=== PATIENT | female | born 1955 | race Caucasian/White ===

== ENCOUNTER 2016-12-26 20:44 | Inpatient (IN) | payer MEDICAID, OTHER ==
[~2016-12-26] VITALS: Ht 154.9 cm; Wt 98.2 kg
[2016-12-26] MEDS: ASPIRIN 81 MG ENTERIC TAB PO SCH (09:00)
[2016-12-26] MEDS ORDERED: METOPROLOL TART 25 MG TABLET PO SCH (21:00)
[2016-12-26] MEDS ORDERED: ATORVASTATIN 20 MG TAB PO SCH (21:00)
[2016-12-26 23:00] VITALS: BP 107/62
[2016-12-26] MEDS ORDERED: LR 1,000 ML IV SCH (23:30)
[2016-12-26] MEDS ORDERED: ONDANSETRON 4MG/2ML VIAL (J2405) IV PRN (23:30)
[2016-12-26] MEDS ORDERED: ACETAMINOPHEN TAB 650MG DOSE (2X325MG) PO PRN (23:30)
[2016-12-26 23:56] LABS: BASO # 0.1 K/mm3 (0.0-0.2); BASO % 0.8 % (0.0-1.0); EOS # 0.1 K/mm3 (0.0-0.50); EOS % 0.9 % (0.0-3.0); LARGE UNSTAINED CELL # 0.2 K/mm3 (0.0-0.4); LARGE UNSTAINED CELL % 1.8 % (0.0-4.0); LYMPH # 0.9 K/mm3 (1.5-4.5); LYMPH % 7.4 % (24.0-44.0); MEAN CORPUSCULAR HEMOGLOBIN 29.6 pg (27.0-33.0); MEAN CORPUSCULAR HGB CONC 33.1 g/dl (32.0-36.5); MEAN CORPUSCULAR VOLUME 89.5 fl (80.0-96.0); MONO # 0.7 K/mm3 (0.0-0.8); MONO % 6.8 % (0.0-5.0); NEUTROPHILS % 82.4 % (36.0-66.0); PLATELET COUNT, AUTOMATED 149 k/mm3 (150-450); RED CELL DISTRIBUTION WIDTH 13.4 % (11.5-14.5); WHITE BLOOD COUNT 9.7 K/mm3 (4.0-10.0)
[2016-12-27] VITALS: BP 107/69
--- NOTE | 2016-12-27 00:05 | HPE ---
DATE OF ADMISSION: 12/26/2016 PRIMARY CARE PROVIDER: CHRIS Sutton CHIEF COMPLAINT: Nausea, vomiting, shortness of breath and palpitations. HISTORY OF THE PRESENT ILLNESS: This is a 61-year-old female patient with underlying medical history of hypertension, dyslipidemia, conjunctivitis with questionable history of tachycardia many years ago. Early this morning at 5:00 a.m., the patient started having nausea and vomiting, nonbloody, nonbilious, very mucousy, clear liquid, for five times since 5:00 a.m. this morning, with also shortness of breath and diarrhea times two, nonbloody, nonbilious, watery. Subsequently, after the patient started vomiting, the patient was not able to take her beta blockers and developed palpitations with dryness sensation in her chest, discomfort ranging from about 4 out of 10 with no relieving or exacerbating factor. The patient subsequently presented to [facility], was found to have a supraventricular tachycardia (SVT) of 200, given adenosine, and the patient intermittently went into sinus tachycardia of 115, subsequently went back to SVT at 200. Subsequently, the patient was administered Cardizem bolus and placed on Cardizem drip and the patient reverted back to sinus with vital signs of 117/80 with a heart rate of 90 and subsequently request for transfer for telemetry monitoring has been made to transfer the patient to [facility]. Initially the patient was brought to the intensive care unit (ICU) given possibility of hemodynamic instability. In the ICU, patient was evaluated, patient had vital signs of heart rate of 80 and sinus rhythm with a blood pressure of 104/75, pulse oximetry of 96% on room air and the patient was comfortable. The patient currently denies any chest pain, pressure or discomfort. Denies any fevers or chills. Last episode of vomiting was many hours ago. The patient feels comfortable. Reported hungry and thirsty. Believes that she can tolerate oral. Subsequently, Cardizem drip was discontinued, oral metoprolol has been ordered for the patient. The patient denies any sick contact, recent travel , abnormal food or diet. Denies any fevers or chills. ALLERGIES: No known drug allergies reported. PAST MEDICAL HISTORY: Conjunctivitis. Pneumothorax a year ago during patient's acute cholecystectomy. Hypertension. Dyslipidemia. PAST SURGICAL HISTORY: Cholecystectomy. SOCIAL HISTORY: The patient lives with a partner. Denies any alcohol drinking, smoking or illicit drug use. FAMILY HISTORY: Noncontributory. HOME MEDICATION: - atorvastatin 20 mg by mouth daily - lisinopril 20 mg by mouth daily - metoprolol 25 mg by mouth daily - omeprazole 20 mg by mouth daily REVIEW OF SYSTEMS: 11-point review of systems negative except for those mentioned in the history of the present illness. PHYSICAL EXAMINATION: VITAL SIGNS: Blood pressure 104/75, pulse 80, respirations 19, pulse oximetry 93 % on room air. GENERAL: Patient obese, alert and oriented times three, in no acute distress. HEENT: Normocephalic, atraumatic. PULMONARY: Bilaterally clear to auscultation. CARDIAC: Regular rate and rhythm. Normal S1, S2. ABDOMEN: Obese, soft, nontender. Positive bowel sounds. EXTREMITIES: No edema bilateral lower extremities. EKG shows SVT at 200 and also sinus tachycardia at 118. Nonspecific ST segment changes. LABORATORY: Still pending. From [facility], the patient had a WBC of 10.8, hemoglobin and hematocrit 16.4 over 49.4, platelets 169. Chemistry: Sodium 141, potassium 4.3, chloride 104, bicarbonate 27, BUN of 15, creatinine 1.1 ASSESSMENT AND PLAN: This is a 61-year-old female patient with underlying medical history of hypertension, dyslipidemia, admitted for nausea, vomiting, diarrhea and supraventricular tachycardia. Problems: 1. Supraventricular tachycardia. Will consult cardiology in the morning. Followup cardiac enzymes. Patient switched over from Cardizem to oral metoprolol. Dosage has been increased to 25 mg by mouth twice a day. Followup cardiac enzymes. Telemetry monitoring. Followup vital signs. IV fluids for hydration. Followup thyroid panel, CBCs, followup electrolytes, supplement as needed. 2. Nausea, vomiting, diarrhea. IV fluids for hydration. Followup electrolytes, supplement as needed, Zofran, GI panel. Followup labs. 3. Hypertension. Holding lisinopril given patient with borderline normal blood pressure and metoprolol dose has been increased. Will followup blood pressure, adjust medication as needed. 4. Dyslipidemia. Continue statin. 5. Obesity. Followup A1c. Continue to monitor. 6. Deep vein thrombosis (DVT) prophylaxis. Heparin subcu. DISPOSITION PLANNING: Pending further workup and cardiology consultation in the morning and followup blood tests overnight. MELANIE
[2016-12-27 00:24] LABS: ALBUMIN 3.6 GM/DL (3.2-5.2); ALBUMIN/GLOBULIN RATIO 0.95 (1.00-1.93); ALKALINE PHOSPHATASE 90 U/L (45-117); ALT/SGPT 51 U/L (12-78); ANION GAP 9 MEQ/L (8-16); AST/SGOT 35 U/L (15-37); BLOOD UREA NITROGEN 17 MG/DL (7-18); CALCIUM LEVEL 8.5 MG/DL (8.8-10.2); CARBON DIOXIDE LEVEL 27 MEQ/L (21-32); CHLORIDE LEVEL 105 MEQ/L (98-107); CREATININE FOR GFR 0.97 MG/DL (0.55-1.02); GLOMERULAR FILTRATION RATE > 60.0 (>45); GLUCOSE, FASTING 107 MG/DL (80-110); MAGNESIUM LEVEL 1.6 MG/DL (1.8-2.4); POTASSIUM SERUM 3.8 MEQ/L (3.5-5.1); SODIUM LEVEL 141 MEQ/L (136-145); T UPTAKE 30 % (30-39); TOTAL PROTEIN 7.4 GM/DL (6.4-8.2)
[2016-12-27] MEDS: HEPARIN SOD (PORCINE) 5000 UNITS/ML VIAL SC SCH ×2 (00:26→06:10)
[2016-12-27] MEDS ORDERED: LISI-538 PO (00:30)
[2016-12-27] MEDS ORDERED: METO-346 PO (00:30)
[2016-12-27] MEDS ORDERED: OMEP20CA3 PO (00:30)
[2016-12-27] MEDS ORDERED: ATOR1TAB21 PO (00:30)
[2016-12-27 04:00] VITALS: BP 110/69
[2016-12-27 05:13] LABS: MEAN CORPUSCULAR HEMOGLOBIN 29.5 pg (27.0-33.0); MEAN CORPUSCULAR HGB CONC 32.9 g/dl (32.0-36.5); MEAN CORPUSCULAR VOLUME 89.7 fl (80.0-96.0); RED CELL DISTRIBUTION WIDTH 13.3 % (11.5-14.5); WHITE BLOOD COUNT 7.1 K/mm3 (4.0-10.0)
[2016-12-27 05:31] LABS: ANION GAP 11 MEQ/L (8-16); BLOOD UREA NITROGEN 16 MG/DL (7-18); CALCIUM LEVEL 8.6 MG/DL (8.8-10.2); CARBON DIOXIDE LEVEL 27 MEQ/L (21-32); CHLORIDE LEVEL 105 MEQ/L (98-107); CREATININE FOR GFR 0.86 MG/DL (0.55-1.02); GLOMERULAR FILTRATION RATE > 60.0 (>45); GLUCOSE, FASTING 120 MG/DL (80-110); MAGNESIUM LEVEL 1.6 MG/DL (1.8-2.4); POTASSIUM SERUM 3.7 MEQ/L (3.5-5.1); SODIUM LEVEL 143 MEQ/L (136-145)
[2016-12-27] MEDS ORDERED: MAG SULF 1GM/100ML (MAG RUN) 1 GM in APPROPRIATE DILUENT 1 EA IV ONE (06:30)
[2016-12-27] MEDS ORDERED: POTASSIUM CHLORIDE 10 MEQ SR TABLET PO ONE (06:30)
[2016-12-27] MEDS ORDERED: OMEPRAZOLE 20 MG CAP PO SCH (09:00)
[2016-12-27] MEDS ORDERED: METOPROLOL TART 25 MG TABLET PO SCH (09:00)
[2016-12-27] MEDS: ASPIRIN 81 MG ENTERIC TAB PO SCH (09:03)
[2016-12-27 09:04] VITALS: BP 94/66
--- NOTE | 2016-12-27 11:31 | CR ---
DATE OF CONSULTATION: 12/27/2016 INDICATION: Supraventricular tachycardia (SVT). HISTORY OF PRESENT ILLNESS: Mrs. Lewis is a 61-year-old female who is previously unknown to me. She presented to [facility] emergency room yesterday evening for symptoms of nausea, vomiting and diarrhea. She tells me that she had some meatballs the night before that did not sit well with her and then during the night had episodes of indigestion and also some shortness of breath. In the morning, she started having profound diarrhea, nausea and vomiting of clear liquids. Eventually, when the symptoms were not subsiding, she came to the emergency room (ER) and was found to have narrow complex tachycardia with ventricular rate of 200 beats per minute. She was given adenosine that led to baptism of sinus mechanism, but she quickly relapsed and a second dose of adenosine was administered with the same result. When the SVT relapsed again, she was given IV Cardizem with prompt baptism of sinus mechanism. She was started on IV Cardizem drip. I was contacted from the emergency room by a nurse practitioner. At that point, none of the blood work was back, but I objected to transfer to our facility because I felt that with SVT she should be able to go home with just brief observation and oral medications. Nevertheless, apparently transfer was arranged later on, and the patient ended up in our intensive care unit (ICU). She tells me that she essentially has no symptoms this morning. She still had some diarrhea, but her nausea and vomiting have not been present since she came to the ER in [facility]. She did have mild discomfort in her chest and mild shortness of breath during the episode of tachycardia, even though she did not feel the tachycardia as such. The patient has no prior cardiac history. She tells me that she had an episode of SVT probably about 15 or 20 years ago. She was then maintained on metoprolol 25 mg daily, but she did not take the dose yesterday because of her nausea and vomiting. Otherwise, she denies any history of chest pain, syncope or palpitations. At her baseline, she is not very active. PAST MEDICAL HISTORY: 1. Hypertension. 2. Dyslipidemia. 3. Obesity. 4. The patient denies history of sleep apnea. PAST SURGICAL HISTORY: The patient had cholecystectomy apparently complicated by right-sided pneumothorax years ago. SOCIAL HISTORY: The patient is single, lives with her partner. She has one son who lives nearby. She never smoked. She does not drink alcohol. It appears that she is disabled, even though it is not quite clear to me what is the nature of her disability. The patient is very vague about this. FAMILY HISTORY: Her father of alcoholism. Her mother in her 80s of "natural causes." The patient denies any history of coronary artery disease in first dgr. relatives.. HOME MEDICATIONS: - Lipitor 20 mg a day - lisinopril 20 mg a day - metoprolol 25 mg a day - omeprazole REVIEW OF SYSTEMS: She denies any recent fever, chills, nausea, vomiting and diarrhea until the onset of history of present illness. She has no history of stroke. No prior cardiac problems, other than possible SVT as above. She denies any paroxysmal nocturnal dyspnea (PND) or orthopnea. Her partner says that she snores loudly and he even notices occasional pauses during breathing. No prior gastrointestinal symptoms other than cholecystectomy years ago. No symptoms to suggest urinary tract infection (UTI). No peripheral edema. PHYSICAL EXAMINATION: Mrs. Lewis is a 61-year-old female who appears approximately her age or maybe slightly older. Her vital signs reveal blood pressure 110/69. Heart rate has been in 80s. She is afebrile, even though one temperature was documented at 100.0. Saturation is 93-96% on room air. Her weight was documented at 98.2 kg. She is alert and oriented and appropriate. Her jugular venous pulse (JVP) is not high. I do not appreciate goiter. Lungs are clear to auscultation with good air movement. Heart: Exam reveals regular rhythm without gallop, rub or murmur. Abdomen is obese, but soft. There is no tenderness or rebound tenderness. I do not appreciate hepatosplenomegaly. Bowel sounds are slightly hyperactive. There is trace peripheral edema. Neurologically, she is intact. LABORATORY: Basic metabolic panel is normal, but for glucose of 120. Hemoglobin A1c was 5.9. She has a little bit low magnesium at 1.6. Her troponin, the initial one in our facility, was 0.13, and the second one of 0.10, it was normal in [facility]. TSH was 1.6. We do not have a 12-lead ECG in sinus rhythm and I am ordering one now. 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 ASSESSMENT/PLAN: Mrs. Lewis is a 61-year-old female who presented with SVT yesterday after she developed probable gastroenteritis, I suspect due to food poisoning. Her symptoms of gastroenteritis are subsiding and she is essentially back to her normal even though she still had one loose bowel movement this morning. As far as the SVT is concerned, it is generally not considered dangerous arrhythmia. I would increase the dose of metoprolol to 25 mg twice a day on an outpatient basis. Simultaneously, I would discontinue her NERY inhibitor. She had a very marginal troponin elevation, which I suspect was not due to a thrombotic event, but rather to the effect of being tachycardiac for at least 12 hours. I still would to send her home on baby aspirin. Her remaining medications can be continued. I will arrange for her to have outpatient followup with Dr. Sharp in [facility]. MELANIE
[2016-12-27] MEDS ORDERED: ZOFR20TA PO (12:30)
[2016-12-27] MEDS ORDERED: METO25TAB PO (12:30)
[2016-12-27] MEDS ORDERED: ASPI81TAEC PO (12:30)
--- NOTE | 2016-12-27 19:08 | DSES ---
DATE OF ADMISSION: 12/26/2016 DATE OF DISCHARGE: 12/27/2016 PRIMARY CARE PROVIDER: Vicky Vallejo. HEALTH PROMOTION COORDINATOR: Metal Tank Builder, Dr. Barcenas. PROCEDURES: None. COMPLICATIONS: None. ADMISSION/DISCHARGE DIAGNOSES: 1. Supraventricular tachycardia. 2. Hypertension. 3. Dyslipidemia. 4. Severe obesity. 5. Nausea and vomiting and diarrhea. HOSPITALIZATION COURSE: The patient is a 61-year-old female who started having nonspecific gastrointestinal (GI) symptoms, such as nausea, vomiting and diarrhea in the morning. Due to the acute GI symptoms, the patient was not able to take her beta spencer and subsequently the patient presented to [facility], and the patient was found to have supraventricular tachycardia with a rate of 200. Adenosine was given; however, the patient continued to have a persistent supraventricular tachycardia and patient started on Cardizem drip, which brought the patient's heart rate down to 90s, and [facility] requested transfer for telemetry monitoring at [facility]. Initially the patient was admitted to the intensive care unit (ICU) for possible hemodynamic instabilities, and the sociology research assistant, Dr. Barcenas, has been consulted and the patient was seen by Dr. Barcenas in the morning. Medication review adjusted, and the patient vitals remain stable. After discussing case with the sociology research assistant, the patient determined stable for discharge with recommendation to followup with her primary care provider within 1-2 weeks, and the patient will be followed with sociology research assistant, Dr. Sharp, in [facility] within one week after discharge. OBJECTIVE: VITAL SIGNS: Temperature is 100, pulse 89, respirations 18, blood pressure is 110/69, pulse oximetry 93% on room air. LABORATORY DATA: WBC 7.1, hemoglobin 15, hematocrit 45.5, platelet count is 151. Sodium 143, potassium 3.7, chloride 105, carbon dioxide 27, BUN 16, creatinine 0.86, GFR greater than 60, fasting glucose 120, calcium 8.6, magnesium 1.6. MICROBIOLOGY: MRSA screening pending. GI panel was not able to be obtained due to lack of stool sample. DISCHARGE MEDICATIONS: - aspirin 81 mg by mouth daily - metoprolol 25 mg by mouth twice a day - Zofran 4 mg by mouth every six hours as needed for nausea and vomiting - atorvastatin 20 mg by mouth daily - omeprazole 20 mg by mouth daily DISCHARGE INSTRUCTIONS: Discontinue lines. Discharge home. Activity as tolerated. Low-salt diet as tolerated. Patient is instructed to followup with her primary care provider within 1-2 weeks. The patient is to followup with the sociology research assistant , Dr. Sharp, in [facility] within one week. DISCHARGE TIME: Greater than 30 minutes. CONDITION ON DISCHARGE: Stable.
--- NOTE | 2016-12-28 11:16 | ECHO ---
DATE OF PROCEDURE: 12/27/2016 REFERRING PHYSICIAN: Dr. Lay. INDICATION: SVT abnormal EKG. The patient measures 61 inches and weighs 98 kilograms. DIMENSIONS: IVS - 1.0 LV - 4.5 LVPW - 1.0 LA -5.0 Aorta - 3.8 Ascending aorta - 4.0 RV - 3.1 LV systolic - FINDINGS: The study is of fair technical quality corresponding to patient's body habitus. Left ventricle is normal size and probably normal systolic function but the visualization was poor. Right ventricle does not appear grossly enlarged. Left atrium is severely enlarged. Right atrium is poorly visualized. Aortic valve is minimally sclerotic but has normal mobility. Mitral and tricuspid valves appear grossly normal. Pulmonic valve was poorly seen but grossly also appears normal. No pericardial effusion is noted. Inferior vena cava is normal size. Aortic root and aortic arch appear normal. Abdominal aorta was not visualized. Doppler interrogation reveals no aortic stenosis or insufficiency. There is trace mitral insufficiency. There is no significant tricuspid insufficiency or pulmonic insufficiency. Mitral inflow pattern and tissue Doppler imaging on mitral annulus reveal grade 2 diastolic dysfunction (tissue Doppler velocities of septal and lateral mitral annulus are 5.6 and 7.4 cm respectively). CONCLUSIONS: 1. The study is of fair technical quality. 2. Normal LV size and systolic function, grade 2 diastolic dysfunction. 3. No significant valvular disease. 4. Normal central venous pressure. 5. Unable to estimate pulmonary artery pressure. 6. Mildly dilated ascending aorta (4.0 cm). COMMENT: SBE prophylaxis is not recommended.
--- NOTE | 2016-12-28 11:21 | ECGEPIP ---
Stationary ECG Study [facility] Test Date: 2016-12-27 Pat Name: XIOMARA ORTIZ Department: Room: [place] [address] Gender: F Plastic Top Assembler: MIGUEL ÁNGEL : 1955 Requested By: Kate Barcenas Order Number: [id number] Reading MD: Kate Barcenas Measurements Intervals [place] Rate: 79 P: 47 [place]: 140 QRS: 27 QRSD: 86 T: 40 QT: 378 QTc: 434 Interpretive Statements SINUS RHYTHM NO PRIOR Electronically Signed On 12-28-2016 11:20:52 EST by Kate Barcenas
== END 2016-12-27 13:05 | disposition home or self-care (01) | DRG 201 ==
LOC: M ICU 22:39
PROVIDERS: ADMIT Hospitalist; ATTEND Internal Medicine
DX: I47.1 Supraventricular tachycardia (principal); I10 Essential (primary) hypertension; R11.2 Nausea with vomiting, unspecified; R19.7 Diarrhea, unspecified; E78.5 Hyperlipidemia, unspecified; E66.9 Obesity, unspecified; T62.8X1A Toxic effect of other specified noxious substances eaten as food, accidental (unintentional), initial encounter; Y92.019 Unspecified place in single-family (private) house as the place of occurrence of the external cause; Z79.899 Other long term (current) drug therapy

== ENCOUNTER → 2022-05-06 | Outpatient (CLI) | payer OTHER ==
[~2022-05-06] MED LIST: ASPI-569 PO; ATOR1TAB21 PO; LISI20TA33 PO; METO-346 PO; METO25TA4 PO; OMEP1CAP73 PO; ZOFR4TAB16 PO
== END ==
LOC: M SOG 14:49
PROVIDERS: ATTEND Orthopaedic Surgery
DX: S82.002A Unspecified fracture of left patella, initial encounter for closed fracture (principal)

== ENCOUNTER → 2022-05-15 | Outpatient (CLI) | payer OTHER | LOC: M SOG 08:05 | PROVIDERS: ATTEND Orthopaedic Surgery | DX: S82.002A Unspecified fracture of left patella, initial encounter for closed fracture (principal); X58.XXXA Exposure to other specified factors, initial encounter; Y92.89 Other specified places as the place of occurrence of the external cause ==

== ENCOUNTER → 2022-11-11 | Outpatient (CLI) | payer OTHER ==
[~2022-11-11] MED LIST changes: +**SFHN** LIDOCAINE 1% MDV 20ML VIAL ONE; +**SFHN** SODIUM BICARBONATE 8.4% 10MEQ 10ML VIAL ONE
[2022-11-11 12:01] VITALS: BP 132/86
== END ==
LOC: M WHCPRO 08:43
PROVIDERS: ATTEND Surgery
DX: R92.8 Other abnormal and inconclusive findings on diagnostic imaging of breast (principal); N63.15 Unspecified lump in the right breast, overlapping quadrants

== ENCOUNTER → 2023-04-21 | Outpatient (CLI) | payer MEDICARE ==
[~2023-04-21] MED LIST changes: -**SFHN** LIDOCAINE 1% MDV 20ML VIAL ONE; -**SFHN** SODIUM BICARBONATE 8.4% 10MEQ 10ML VIAL ONE; +ATOR40TA75 PO; +D3 S1CAP3 PO; +FLUT1INH3 INH; +FURO20TA2 PO; +LOSA25TA13 PO; +METF-838 PO; +OMEP-173 PO
[2023-04-21 11:42] LABS: BASO # 0.1 10^3/uL (0.0-0.2); BASO % 1.2 % (0.0-1.0); EOS # 0.6 10^3/uL (0.0-0.5); EOS % 7.2 % (0.0-3.0); HEMATOCRIT 43.6 % (36.0-47.0); HEMOGLOBIN 13.9 g/dl (12.0-15.5); LYMPH # 1.2 10^3/uL (1.5-5.0); LYMPH % 14.8 % (24.0-44.0); MEAN CORPUSCULAR HGB CONC 31.9 g/dl (32.0-36.5); MEAN CORPUSCULAR VOLUME 87.9 fl (80.0-96.0); MONO # 0.6 10^3/uL (0.0-0.8); NEUTROPHILS # 5.4 10^3/uL (1.5-8.5); NEUTROPHILS % 69.4 % (36.0-66.0); PLATELET COUNT, AUTOMATED 204 10^3/uL (150-450); RED BLOOD COUNT 4.96 10^6/uL (4.00-5.40); WHITE BLOOD COUNT 7.8 10^3/uL (4.0-10.0)
[2023-04-21 12:07] LABS: INR 1.07; PROTHROMBIN TIME 14.1 SECONDS (12.5-14.5)
[2023-04-21 12:15] LABS: BLOOD UREA NITROGEN 9 MG/DL (9-23); CALCIUM LEVEL 8.4 MG/DL (8.3-10.6); CARBON DIOXIDE LEVEL 31 MMOL/L (20-31); CHLORIDE LEVEL 101 MMOL/L (98-107); CREATININE FOR GFR 0.85 MG/DL (0.55-1.30); GLOMERULAR FILTRATION RATE > 60.0 (>45); GLUCOSE, FASTING 96 MG/DL (74-106); POTASSIUM SERUM 3.7 MMOL/L (3.5-5.1); SODIUM LEVEL 141 MMOL/L (136-145)
== END ==
LOC: M LAB 10:54
PROVIDERS: ATTEND Internal Medicine Critical Care Medicine
DX: R91.8 Other nonspecific abnormal finding of lung field (principal); Z79.899 Other long term (current) drug therapy

== ENCOUNTER 2023-06-03 06:22 | Day surgery (SDC) | payer MEDICARE ==
[~2023-06-03] VITALS: Ht 157.5 cm; Wt 87.4 kg
[2023-06-03] MEDS ORDERED: MIDAZOLAM INJ 2MG/2ML VIAL As Ordered ONE (06:54)
[2023-06-03] MEDS ORDERED: fentaNYL 100 MCG/2 ML INJECTION As Ordered ONE (06:54)
[2023-06-03] MEDS ORDERED: LIDOCAINE PRES-FREE 2% 10ML AMP INH ONE (07:00)
[2023-06-03] MEDS ORDERED: ALBUTEROL SULFATE 2.5MG/0.5ML INH NEB SOLN INH ONE (07:00)
[2023-06-03] MEDS ORDERED: ACETAMINOPHEN 1000MG 100ML IV BAG As Ordered ONE (07:05)
[2023-06-03] MEDS ORDERED: propofoL 200 MG/20 ML VIAL As Ordered ONE ×2 (07:05→07:06)
[2023-06-03] MEDS ORDERED: ROCURONIUM BROMIDE 50MG/5ML VIAL As Ordered ONE (07:06)
[2023-06-03] MEDS ORDERED: ONDANSETRON 4MG 2ML VIAL As Ordered ONE (07:06)
[2023-06-03] MEDS ORDERED: SUGAMMADEX SODIUM 500 MG/5 ML VIAL (BRIDION) As Ordered ONE (07:06)
[2023-06-03] MEDS ORDERED: LIDOCAINE 2% 100MG/5ML SDV (FOR ANES.) As Ordered ONE (07:06)
[2023-06-03] MEDS ORDERED: CETACAINE SPRAY 5GM As Ordered ONE (07:19)
[2023-06-03] MEDS ORDERED: THROMBIN 5,000 UNITS VIAL As Ordered ONE (07:19)
[2023-06-03] MEDS ORDERED: EPINEPHrine 1MG/10ML SYRINGE 1.5IN As Ordered ONE (07:19)
[2023-06-03] MEDS ORDERED: fentaNYL 100 MCG/2 ML INJECTION IV PRN (08:25)
[2023-06-03] MEDS ORDERED: oxyCODONE 5MG TAB PO PRN (08:25)
[2023-06-03] MEDS ORDERED: LR 1,000 ML IV SCH (08:25)
[2023-06-03] MEDS ORDERED: ONDANSETRON 4MG 2ML VIAL IV PRN (08:25)
[2023-06-03 10:20] VITALS: BP 131/72; TEMP 98.2; O2SAT 96
== END 2023-06-03 10:27 | disposition home or self-care (01) ==
LOC: M SDC 06:22
PROVIDERS: ATTEND Internal Medicine Critical Care Medicine
DX: I88.9 Nonspecific lymphadenitis, unspecified (principal); I10 Essential (primary) hypertension; E11.9 Type 2 diabetes mellitus without complications; E78.00 Pure hypercholesterolemia, unspecified; K21.9 Gastro-esophageal reflux disease without esophagitis; R06.02 Shortness of breath; I71.21 Aneurysm of the ascending aorta, without rupture; Z79.899 Other long term (current) drug therapy; Z79.82 Long term (current) use of aspirin; Z79.84 Long term (current) use of oral hypoglycemic drugs
CPT/HCPCS: 31624; 31629; 31652; 87070; 87102; 87116; 87205; 87206; 88173; 88305; J0131; J1100; J2250; J2405; J3010

== ENCOUNTER → 2023-07-14 | Outpatient (CLI) | payer MEDICARE | LOC: M WHC 14:24 | PROVIDERS: ATTEND Nurse Practitioner Women's Health | DX: D24.1 Benign neoplasm of right breast (principal) | CPT/HCPCS: 77065; G0279 ==